=== PATIENT | female | born 1930 | race Caucasian/White ===

== ENCOUNTER → 2017-10-11 | Outpatient (CLI) | payer MEDICARE, BC ==
[~2017-10-11] MED LIST: ASPIR-LOW81 MG PO; ASPIRIN 81M81 MG/TA2 PO; CALTRATE-600 W600 MG PO; CARDI-OMEGA1000 MG PO; CELEBREX 200MG200 MG PO; CENTRUM SILVER1 TA1 PO; FERROUS SU325 MG/TAB PO; FOLIC ACID PO; LIPITOR 10MG10 MG PO; LISINOPRIL PO; PRANDIN 0.5MG0.5 MG PO; PRANDIN PO; PRINIVIL40 MG PO; RYBIX ODT50 MG PO; TRAMADOL50 MG PO; TYLENOL 325MG325 MG PO; VITAMIN C500 MG PO
== END ==
LOC: MC.RAD 09:36
DX: Z12.31 Encounter for screening mammogram for malignant neoplasm of breast (principal)

== ENCOUNTER → 2018-10-12 | Outpatient (CLI) | payer MEDICARE, BC | LOC: MC.RAD 08:41 | DX: Z12.31 Encounter for screening mammogram for malignant neoplasm of breast (principal); Z98.890 Other specified postprocedural states ==

== ENCOUNTER 2018-12-15 14:50 | Emergency (ER) | payer MEDICARE, BC ==
[~2018-12-15] VITALS: Ht 162.6 cm; Wt 74.5 kg
[2018-12-15 15:32] VITALS: TEMP 97.1
[2018-12-15] MEDS ORDERED: ASPIRIN 32325 MG/TA1 PO (16:37)
[2018-12-15 16:51] LABS: BASO % 0.1 % (0.0-2.0); GRAN # 8.4 (1.4-6.5); HEMATOCRIT 41.1 % (37.0-47.0); LYMPH # 0.2 (1.2-3.4); LYMPH % 2.8 % (20.0-51.0); MEAN CELL VOLUME 97 fl (80.0-100.0); MEAN CORPUSCULAR HEMOGLOBIN 33 pg (27.0-31.0); MEAN CORPUSCULAR HGB CONC 34 g/dl (33.0-37.0); MEAN PLATELET VOLUME 10.1 fl (7.4-10.4); MONO # 0.1 (0.1-0.6); MONO % 0.8 % (1.7-9.3); PLATELET COUNT 215 K/mm3 (130-400); RED BLOOD COUNT 4.22 M/mm3 (4.10-5.30); REDCELL DISTRIBUTION WIDTH-CV 11.9 % (11.5-14.5)
[2018-12-15 16:59] LABS: INR 1.1 (0.8-3.0); PROTHROMBIN TIME 12.1 SECONDS (9.7-12.8)
[2018-12-15 17:00] LABS: COLLECTION METHOD CLEAN CATCH
[2018-12-15 17:06] LABS: ALBUMIN 3.9 gm/dL (3.5-5.0); BILIRUBIN,TOTAL 0.6 mg/dL (0.0-1.0); CALCIUM 8.8 mg/dL (8.4-10.2); CREATININE, serum 0.83 mg/dL (0.52-1.25); POTASSIUM 3.1 mmol/L (3.4-5.0); TOTAL PROTEIN 6.6 gm/dL (6.4-8.2)
[2018-12-15 17:08] LABS: PH 5 (5-8); SQUAMOUS EPITHELIAL None Seen /hpf; URINE APPEARANCE Cloudy; URINE BACTERIA Moderate /hpf; URINE BILIRUBIN Negative (NEGATIVE); URINE BLOOD 2+ (NEGATIVE); URINE COLOR Yellow; URINE GLUCOSE 3+ (NEGATIVE); URINE KETONE Trace (NEGATIVE); URINE LEUKOCYTE ESTERASE 3+ (NEGATIVE); URINE NITRATE Negative (NEGATIVE); URINE PROTEIN(semi-quant) 2+ (NEGATIVE); URINE RBC 0-2 /hpf; URINE UROBILINOGEN Negative (NEGATIVE)
[2018-12-15 17:19] LABS: TROPONIN-I 0.052 ng/mL (0.000-0.035)
[2018-12-15 21:05] VITALS: BP 98/51; PULSE 111
== END 2018-12-15 21:05 | disposition short-term general hospital (02) ==
LOC: COL.ER 14:50
PROVIDERS: Emergency Medicine; Family Medicine
DX: A41.9 Sepsis, unspecified organism (principal); K56.2 Volvulus; I10 Essential (primary) hypertension; E11.9 Type 2 diabetes mellitus without complications; E78.5 Hyperlipidemia, unspecified; Z85.3 Personal history of malignant neoplasm of breast; Z79.84 Long term (current) use of oral hypoglycemic drugs; Z98.890 Other specified postprocedural states
CPT/HCPCS: J0692; J2270; J2405; J3010; J7030; Q9967